=== PATIENT | male | born 1975 | race Hispanic/Latino ===

== ENCOUNTER 2021-05-18 05:14 | Emergency (ER) | payer SELFPAY ==
[~2021-05-18] VITALS: Ht 167.6 cm; Wt 120.2 kg
[2021-05-18] MEDS ORDERED: PREDNISONE20 MG PO (06:11)
[2021-05-18] MEDS ORDERED: AZITHROMYCIN250 MG PO (06:11)
[2021-05-18] MEDS ORDERED: VENTOLIN HFA18 GM INH (06:11)
== END 2021-05-18 06:38 | disposition home or self-care (01) ==
LOC: FSED 06:10
DX: B34.9 Viral infection, unspecified (principal)
CPT/HCPCS: 83518; 87400; 99283

== ENCOUNTER 2021-08-02 18:30 | Emergency (ER) | payer SELFPAY ==
[~2021-08-02] VITALS: Ht 167.6 cm; Wt 120.2 kg
[~2021-08-02 18:30] MED LIST: AZITHROMYCIN250 MG PO; PREDNISONE20 MG PO; VENTOLIN HFA18 GM INH
[2021-08-02] MEDS ORDERED: TESSALON PERLE100 MG PO (19:28)
[2021-08-02] MEDS ORDERED: ZITHROMAX250 MG PO (19:28)
== END 2021-08-02 21:33 | disposition home or self-care (01) ==
LOC: ER 19:03
DX: R05 Cough (principal); J20.9 Acute bronchitis, unspecified; I10 Essential (primary) hypertension
CPT/HCPCS: 99282

== ENCOUNTER 2022-03-20 17:02 | Emergency (ER) | payer SELFPAY ==
[~2022-03-20] VITALS: Ht 167.6 cm; Wt 113.4 kg
[~2022-03-20 17:02] MED LIST changes: +TESSALON PERLE100 MG PO; +ZITHROMAX250 MG PO
[2022-03-20] MEDS ORDERED: NAPROSYN500 MG PO (18:20)
[2022-03-20] MEDS ORDERED: DEXAMETHASONE SOD PHOS INJ 4 MG/ML SDV IM ONE (18:30)
[2022-03-20] MEDS ORDERED: DEXAMETHASONE SOD PHOS INJ 4 MG/ML SDV ONE (18:46)
== END 2022-03-20 19:04 | disposition home or self-care (01) ==
LOC: FSED 17:44
DX: M77.52 Other enthesopathy of left foot and ankle (principal); S76.812A Strain of other specified muscles, fascia and tendons at thigh level, left thigh, initial encounter; I10 Essential (primary) hypertension; Z91.14 Patient's other noncompliance with medication regimen
CPT/HCPCS: 96372; 99282; J1100

== ENCOUNTER 2022-05-16 14:06 | Emergency (ER) | payer SELFPAY ==
[~2022-05-16] VITALS: Ht 167.6 cm; Wt 113.4 kg
[~2022-05-16 14:06] MED LIST changes: +NAPROSYN500 MG PO
== END 2022-05-16 17:11 | disposition home or self-care (01) ==
LOC: FSED 14:13
DX: M25.572 Pain in left ankle and joints of left foot (principal); X50.1XXA Overexertion from prolonged static or awkward postures, initial encounter; Y93.01 Activity, walking, marching and hiking; I10 Essential (primary) hypertension; F17.210 Nicotine dependence, cigarettes, uncomplicated
CPT/HCPCS: 99283

== ENCOUNTER 2024-10-20 12:20 | Emergency (ER) | payer SELFPAY ==
[~2024-10-20] VITALS: Ht 167.6 cm; Wt 113.4 kg
[2024-10-20 13:09] LABS: BASOPHILS # (AUTO) 0.1 (0.0-0.1); BASOPHILS % 1.3 % (0.0-1.0); EOSINOPHILS # (AUTO) 0.3 (0.0-0.4); EOSINOPHILS % 2.4 % (0.0-6.0); HEMATOCRIT 41.4 % (38.2-49.6); HEMOGLOBIN 13.3 g/dL (14.0-18.0); LYMPHOCYTES % 38.4 % (18.0-39.1); MEAN CORPUSCULAR HEMOGLOBIN 29.8 pg (28-32); MEAN CORPUSCULAR HGB CONC 32.1 g/dL (31-35); MEAN CORPUSCULAR VOLUME 92.8 fL (81-99); MONOCYTES # (AUTO) 0.8 (0.2-0.8); NEUTROPHILS # (AUTO) 5.1 (2.1-6.9); NEUTROPHILS % 49.7 % (38.7-80.0); PLATELET COUNT 233 x10e3/uL (140-360); RED BLOOD COUNT 4.46 x10e6/uL (4.3-5.7); RED CELL DISTRIBUTION WIDTH 12.9 % (11.7-14.4); WHITE BLOOD COUNT 10.32 x10e3/uL (4.8-10.8)
[2024-10-20 13:19] LABS: INR 1.02
[2024-10-20 13:20] LABS: PARTIAL THROMBOPLASTIN TIME 34.1 seconds (23.8-35.5)
[2024-10-20 13:27] LABS: ALBUMIN 3.9 g/dL (3.5-5.0); ALBUMIN/GLOBULIN RATIO 1.3 (0.8-2.0); ANION GAP 14.2 mmol/L (8-16); BILIRUBIN,TOTAL 1.1 mg/dL (0.2-1.2); CALCIUM 8.9 mg/dL (8.4-10.2); CREATININE, SERUM 0.92 mg/dL (0.72-1.25); TOTAL PROTEIN 6.9 g/dL (6.5-8.1)
[2024-10-20 13:28] LABS: POTASSIUM 3.2 mmol/L (3.5-5.1)
[2024-10-20 13:31] LABS: INFLUENZA A AG NEGATIVE (NEGATIVE)
[2024-10-20 13:32] LABS: CORONAVIRUS COVID-19 AG NEGATIVE (NEGATIVE); INFLUENZA B AG NEGATIVE (NEGATIVE)
[2024-10-20 13:33] LABS: TROPONIN I 0.011 ng/mL (0-0.300)
[2024-10-20] MEDS: SODIUM CHLORIDE 0.9% 1000ML 1,000 ML IV STA (15:26)
[2024-10-20] MEDS: SODIUM CHLORIDE 0.9% 500ML 500 ML IV ONE (15:27)
[2024-10-20 15:34] VITALS: PULSE 81; RESP 16; TEMP 98.8; O2SAT 99
[2024-10-20 17:18] LABS: TROPONIN I 0.013 ng/mL (0-0.300)
== END 2024-10-20 17:34 | disposition home or self-care (01) ==
LOC: ER 13:51
DX: R50.9 Fever, unspecified (principal); B34.9 Viral infection, unspecified; R05.9 Cough, unspecified; I10 Essential (primary) hypertension; Z11.52 Encounter for screening for COVID-19; R94.31 Abnormal electrocardiogram [ECG] [EKG]; F17.210 Nicotine dependence, cigarettes, uncomplicated
CPT/HCPCS: 36415; 71046; 80053; 82550; 83735; 83880; 84484; 85025; 85610; 85730; 87428; 93005; 99284; J7030; J7040